=== PATIENT | male | born 1995 | race Caucasian/White ===

== ENCOUNTER 2019-10-17 10:44 | Day surgery (SDC) | payer OTHER ==
[~2019-10-17] VITALS: Ht 180.3 cm; Wt 75.2 kg
[2019-10-17 11:12] VITALS: BP 111/64; PULSE 75; TEMP 97.5
[2019-10-17] MEDS ORDERED: COLACE 100100 MG/CAP PO (14:22)
[2019-10-17] MEDS ORDERED: MOTRIN 600600 MG/TAB PO (14:22)
[2019-10-17] MEDS ORDERED: NORCO 325 MG-51 TAB PO (14:23)
[2019-10-17 14:45] VITALS: BP 123/61; PULSE 69; TEMP 97.5
--- NOTE | 2019-10-17 14:45 | NUR ---
Pt to [facility] via cart from PACU. Pt awake and alert. Pt denies pain or nausea. 3 incision sites to abdomen are clean and dry with crow set intact. IV fluids infusing without diffiuclties. Water given per pt request. Mother in room. Side rails up x2. Call light within reach.
[2019-10-17 15:00] VITALS: BP 114/62; PULSE 61
--- NOTE | 2019-10-17 15:00 | NUR ---
Pt continues to rest. Denies pain or nausea. Will continue to monitor.
[2019-10-17 15:12] VITALS: TEMP 97.5
[2019-10-17 15:15] VITALS: BP 116/63; PULSE 65
--- NOTE | 2019-10-17 15:15 | NUR ---
Motrin 600mg PO given per prn orders for pretreatment of pain for when he feels like getting up and ambulating. Pt tolerating PO food and fluids without nausea. Will continue to monitor. Call light within reach.
[2019-10-17 15:30] VITALS: BP 116/59; PULSE 68
--- NOTE | 2019-10-17 15:30 | NUR ---
Pt continues to rest. Denies needs at this time. Call light within reach.
--- NOTE | 2019-10-17 15:45 | NUR ---
Pt up to restroom with stand by assistance. Gait steady. Pt voids large amount without difficulties. Pt back to room. IV site discontinued with all parts intact. Pt up to dress. Call light within reach.
--- NOTE | 2019-10-17 16:00 | NUR ---
Discharge instructions reviewed. Pt voices understanding.
--- NOTE | 2019-10-17 16:10 | NUR ---
Pt escorted to private car via wheel chair. Pt accompanied home by his mother.
== END 2019-10-17 16:10 | disposition home or self-care (01) ==
LOC: SDCO 10:44
DX: K40.90 Unilateral inguinal hernia, without obstruction or gangrene, not specified as recurrent (principal)
CPT/HCPCS: C1781; J0690; J1100; J1885; J2250; J2405; J2550; J2704; J2795; J3010; J7120